=== PATIENT | female | born 1990 | race Asian ===

== ENCOUNTER 2022-09-07 08:15 | Emergency (ER) | payer OTHER ==
[~2022-09-07] VITALS: Ht 157.5 cm; Wt 72.7 kg
[2022-09-07] MEDS ORDERED: ESCI-8 PO (08:19)
[2022-09-07] MEDS ORDERED: HYDR25TA2 PO (08:19)
[2022-09-07] MEDS ORDERED: METF-81 PO (08:19)
[2022-09-07] MEDS ORDERED: BUSP5TAB20 PO (08:19)
[2022-09-07] MEDS ORDERED: AMLO-257 PO (08:19)
[2022-09-07] MEDS ORDERED: IBUP-1492 PO (10:59)
[2022-09-07 11:24] VITALS: BP 139/97
== END 2022-09-07 11:34 | disposition home or self-care (01) ==
LOC: EMS 08:20
DX: S16.1XXA Strain of muscle, fascia and tendon at neck level, initial encounter (principal); F41.9 Anxiety disorder, unspecified; F32.A Depression, unspecified; E11.9 Type 2 diabetes mellitus without complications; Z90.49 Acquired absence of other specified parts of digestive tract; V49.9XXA Car occupant (driver) (passenger) injured in unspecified traffic accident, initial encounter; Y93.89 Activity, other specified; Y92.89 Other specified places as the place of occurrence of the external cause; Y99.8 Other external cause status
CPT/HCPCS: 82962; 99282; 99285